=== PATIENT | male | born 1985 | race Caucasian/White ===

== ENCOUNTER → 2017-12-22 | Outpatient (CLI) | payer OTHER ==
[2017-12-22 10:47] LABS: BASOPHILS ABSOLUTE AUTO 0.04 K/mm3 (0.00-0.23); BASOPHILS PERCENT AUTO 1 % (0-2); EOSINOPHILS ABSOLUTE AUTO 0.01 K/mm3 (0.00-0.68); EOSINOPHILS PERCENT AUTO 0 % (0-6); Hematocrit 37.5 % (37.0-53.0); Hemoglobin 13.6 g/dL (13.5-17.5); IMMATURE GRAN ABSOLUTE AUTO 0.02 K/mm3 (0.00-0.10); IMMATURE GRAN PERCENT AUTO 0 % (0-1); LYMPHOCYTES ABSOLUTE AUTO 1.04 K/mm3 (0.84-5.20); LYMPHOCYTES PERCENT AUTO 14 % (21-46); MONOCYTES ABSOLUTE AUTO 0.39 K/mm3 (0.16-1.47); MONOCYTES PERCENT AUTO 5 % (4-13); Mean Corpuscular HGB 34.7 pg (26.0-34.0); Mean Corpuscular HGB Conc 36.3 g/dL (31.5-36.5); Mean Corpuscular Volume 96 fL (80-100); Mean Platelet Volume 10.5 fL (9.1-12.4); NEUTROPHILS PERCENT AUTO 80 % (41-73); Platelet Count 210 K/mm3 (150-400); RDW Coefficient Variation 13.5 % (11.7-14.2); RDW Standard Deviation 47.2 fL (35.1-46.3); Red Blood Cell Count 3.92 M/mm3 (4.30-5.90)
[2017-12-22 11:24] LABS: Albumin/Globulin Ratio 1.1 (0.8-1.8); Anion Gap 9 mmol/L (6-16); Bun/Creatinine Ratio 15.1 (12.0-20.0); Glomerular Filtration Rate >60 (60-)
[2017-12-22 11:28] LABS: Potassium, Blood 3.8 mmol/L (3.5-5.5); Sodium, Blood 139 mmol/L (136-145)
[2017-12-22 11:29] LABS: Blood Urea Nitrogen 11 mg/dL (8-24); CO2, Blood 28 mmol/L (21-32); Calcium, Blood 8.7 mg/dL (8.5-10.1); Chloride, Blood 102 mmol/L (98-108); Creatinine, Blood 0.73 mg/dL (0.60-1.20); Glucose, Blood 124 mg/dL (70-99); Total Protein, Blood 6.6 g/dL (6.4-8.2)
[2017-12-22 11:30] LABS: Alanine Aminotransfer (ALT/SGP 144 U/L (12-78); Albumin, Blood 3.4 g/dL (3.4-5.0); Alk Phos 163 U/L (50-136); Aspartate Aminotrans (AST/SGOT 229 U/L (12-37); Bilirubin, Total 0.9 mg/dL (0.1-1.0); Globulin, Blood 3.2 g/dL (2.2-4.0)
== END | disposition home or self-care (01) ==
LOC: LAB SHORT 10:01 → LAB EV 10:01
PROVIDERS: Physician Assistant Surgical
DX: R10.9 Unspecified abdominal pain (principal)
CPT/HCPCS: 80053; 83690; 85025